=== PATIENT | male | born 2000 | race American Indian/Alaskan Native ===

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

== ENCOUNTER 2023-02-25 13:41 | Emergency (ER) | payer MEDICAID ==
[2023-02-25 15:30] LABS: INFLUENZA A NAA NEGATIVE (NEGATIVE); INFLUENZA B NAA NEGATIVE (NEGATIVE); RESPIRATORY SYNCYTIAL VIR NAA NEGATIVE (NEGATIVE)
[2023-02-25 15:35] LABS: CORONAVIRUS COVID-19 NAA POSITIVE (NEGATIVE)
[2023-02-25 15:57] VITALS: BP 153/91; PULSE 77
[2023-02-25] MEDS ORDERED: Take Home: Doxycycline 100 MG Cap, 4 Cap Pack PO ONE (16:18)
== END 2023-02-25 16:26 | disposition home or self-care (01) ==
LOC: DL.ED 13:41
DX: U07.1 COVID-19 (principal); H66.002 Acute suppurative otitis media without spontaneous rupture of ear drum, left ear; E66.9 Obesity, unspecified; Z68.43 Body mass index [BMI] 50.0-59.9, adult
CPT/HCPCS: 0241U; 87081; 87430; 99283; A9270-GY

== ENCOUNTER 2024-03-15 00:43 | Emergency (ER) | payer MEDICAID ==
[2024-03-15] MEDS: Acetaminophen 325 MG Tab PO ONE (01:25)
[2024-03-15 01:44] VITALS: BP 133/62; PULSE 84
== END 2024-03-15 01:40 | disposition home or self-care (01) ==
LOC: DL.ED 00:43
DX: S43.102A Unspecified dislocation of left acromioclavicular joint, initial encounter (principal); E66.9 Obesity, unspecified; Z68.43 Body mass index [BMI] 50.0-59.9, adult; W10.9XXA Fall (on) (from) unspecified stairs and steps, initial encounter; Y93.01 Activity, walking, marching and hiking
CPT/HCPCS: 73000; 73030; 99283; A9270